=== PATIENT | male | born 1985 | race Caucasian/White ===

== ENCOUNTER → 2021-06-23 | Outpatient (CLI) | payer OTHER ==
[~2021-06-23] MED LIST: B6/F1CAP PO; OXYC1TAB15 PO
== END ==
LOC: LAB 12:11
PROVIDERS: ATTEND Surgery
DX: Z01.812 Encounter for preprocedural laboratory examination (principal); Z20.822 Contact with and (suspected) exposure to COVID-19; K40.90 Unilateral inguinal hernia, without obstruction or gangrene, not specified as recurrent
CPT/HCPCS: U0003; U0005

== ENCOUNTER 2021-06-27 11:24 | Day surgery (SDC) | payer OTHER ==
[~2021-06-27] VITALS: Ht 180.3 cm; Wt 60.5 kg
[~2021-06-27 11:24] MED LIST changes: +BUPIVACAINE-EPI 0.25%-1:200000 MPF 30 ML VIAL. ONE; +HYDROmorphone 2 MG/ML VIAL IVP PRN; +IV RINGERS,LACTATED 1000ML 1,000 ML IV SCH; +MINERAL OIL for SURGERY 10 ML VIAL. MC ONE; -OXYC1TAB15 PO; +PROCHLORPERAZINE 10 MG/2 ML VIAL. IVP PRN; +ceFAZolin SODIUM IV Push 1 GM VIAL. IVP PRN; +fentaNYL PF VIAL 100 MCG/2 ML VIAL IVP PRN
[2021-06-27] MEDS ORDERED: ACETAMINOPHEN 500 MG TABLET PO PRN (11:30)
[2021-06-27 11:58] VITALS: BP 145/82
[2021-06-27] MEDS ORDERED: LIDOCAINE 2% PF 5 ML VIAL. ONE (12:15)
[2021-06-27] MEDS ORDERED: PROPOFOL 10 MG/ML (20ML) VIAL. IV ONE (12:15)
[2021-06-27] MEDS ORDERED: ROCURONIUM 50 MG/5 ML VIAL. ONE (12:15)
[2021-06-27] MEDS ORDERED: MIDAZOLAM HCL/PF 2 MG/2 ML VIAL. ONE (12:15)
[2021-06-27] MEDS ORDERED: fentaNYL PF VIAL 250 MCG/5 ML VIAL ONE (12:16)
[2021-06-27] MEDS ORDERED: ONDANSETRON PF 4 MG/2 ML VIAL. ONE (13:43)
[2021-06-27] MEDS ORDERED: DEXAMETHASONE SOD PHOS 4 MG/ML VIAL ONE (13:43)
[2021-06-27] MEDS ORDERED: SEVOFLURANE 31 TO 60 MINUTES. IH ONE (13:51)
[2021-06-27] MEDS ORDERED: GLYCOPYRROLATE 1 MG/5 ML VIAL. ONE (14:02)
[2021-06-27] MEDS ORDERED: NEOSTIGMINE METHYLSULFATE 5 MG/5 ML SYRINGE. ONE (14:02)
--- NOTE | 2021-06-27 14:36 | PDOC4 ---
Operative Note Operative Note Date: June 272020 at 1433 Preoperative diagnosis: Left inguinal hernia Postoperative diagnosis: Same Procedure: Robotic assisted laparoscopic left inguinal hernia repair with mesh Surgeon: Natanael Dictation: Patient is a 35-year-old male with a left inguinal hernia previously seen in the emergency department. Procedure of robotic assisted laparoscopic left inguinal hernia repair with mesh was explained to the patient detail risk benefits were also discussed including bleeding infection injury to intra- abdominal contents possible necessitating further open operations alternatives to this procedure also discussed with patient who seemed to understand and gave both verbal and written consent to have the procedure performed. Patient was taken to the operating room placed in the supine position general anesthesia was initiated once patient was sleeping intubated his abdomen was prepped and draped usual sterile fashion using ChloraPrep area just above the umbilicus was injected with quarter percent Marcaine with epinephrine incision was made 11 blade scalpel and a varies needle was placed within the abdomen creating pneumoperitoneum once this was complete a 8 mm da Jolene port was placed and the 8 mm da Jolene camera was placed within the abdomen was inspected was noted that there was a hernia on the left side otherwise everything else appeared to be normal. 8 mm ventral port was placed in the right midabdomen and an 8 mm ventral port was placed in the left midabdomen patient was placed in some Trendelenburg and the da Jolene robot was brought and docked all port sites surgeon went to the robotic console using a grasper and Endo Christiano scissors a peritoneal window was propagated on the left side this was propagated inferiorly reducing the hernia sac and contents. A large Bard 3D max mesh for the left side was placed over the floor of the peritoneum covering the hernia defect. The peritoneum was then closed with a running 2 OV lock absorbable suture suture was moved from the abdomen the da Jolene robot was undocked from all port sites all ports removed the pneumoperitoneum was reduced all port sites were closed for subicular Monocryl Mastisol Steri-Strips and island dressings were applied. Patient was awakened and extubated in the operating room taken to recovery in stable condition all sponge instrument needle counts listed as correct estimated blood loss 5 mL ALEXEY ECHEVERRIA MD Jun 27, 2021 14:36
[2021-06-27] MEDS ORDERED: OXYC1TAB15 PO (14:38)
--- NOTE | 2021-06-27 14:40 | DISCH ---
DISCHARGE INSTRUCTIONS Condition on Discharge Condition on Discharge: Stable Activity After Discharge Activity Instructions for Disc: Avoid exertion Other activity instructions: No lifting more than 20 pounds for 2 weeks Diet after Discharge Diet after Discharge: Regular Wound Incision Care Other wound/incision instructi: Ange shower in 24 hours Contacting the DRChris after DC Call your doctor for: If your condition worsens Follow-Up Follow up with: Dr. Echeverria in 2 weeks ALEXEY ECHEVERRIA MD Jun 27, 2021 14:40
[2021-06-27] MEDS ORDERED: KETOROLAC 30 MG/ML VIAL. ONE (14:42)
[2021-06-27] MEDS ORDERED: MORPHINE SULFATE 2 MG/ML INJ. ONE (15:04)
[2021-06-27] MEDS: MORPHINE SULFATE 2 MG/ML INJ. IVP PRN ×2 (15:09→15:19)
[2021-06-27] MEDS ORDERED: oxyCODONE/APAP 5/325 1 TAB TABLET PO ONE ×2 (15:30)
[2021-06-27] MEDS ORDERED: fentaNYL PF VIAL 100 MCG/2 ML VIAL ONE (15:31)
[2021-06-27 15:50] VITALS: BP 137/87
== END 2021-06-27 16:30 | disposition home or self-care (01) ==
LOC: SURG 11:24 → EDUNIT# 13:00 → SURG 16:30
PROVIDERS: ATTEND Surgery
DX: K40.90 Unilateral inguinal hernia, without obstruction or gangrene, not specified as recurrent (principal); Z87.891 Personal history of nicotine dependence; Z79.899 Other long term (current) drug therapy; Z98.890 Other specified postprocedural states
CPT/HCPCS: 49650; A4364; A4930; A6219; C1781; J0690; J1100; J1885; J2250; J2270; J2405; J2704; J2710; J3010; J3490; S2900; A4657